=== PATIENT | female | born 1975 | race African-American/Black ===

== ENCOUNTER 2025-03-27 15:15 | Emergency (ER) | payer MEDICAID ==
[~2025-03-27] VITALS: Ht 167.6 cm; Wt 113.9 kg
[~2025-03-27 15:15] MED LIST: ALBU6.7H14 INH; GUAI120S17 PO; IBUP-1051 PO; NO HOME MEDS
[2025-03-27 15:18] VITALS: BP 154/92; PULSE 112; RESP 16; TEMP 98.7; O2SAT 98
[2025-03-27 15:38] LABS: LEUKOCYTE ESTERASE ,URINE NEGATIVE (Neg); NITRITES, URINE NEGATIVE (Neg); OCCULT BLOOD,URINE TRACE-INTACT (Neg)
[2025-03-27 15:39] LABS: URINE HCG NEGATIVE (NEG)
[2025-03-27 15:43] LABS: UA COLLECTION TYPE CLN CATCH MIDSTREAM
[2025-03-27 15:45] LABS: MUCUS STRANDS MODERATE /LPF (Neg); SQUAMOUS EPITHELIAL CELL,UR FEW /LPF (FEW)
[2025-03-27 16:10] LABS: MEAN PLATELET VOLUME 7.4 FL (7.4-10.4); RED CELL DISTRIBUTION WIDTH 14.5 % (11.5-14.5)
[2025-03-27 16:23] LABS: CREATININE 0.92 MG/DL (0.40-0.90); TOTAL CARBON DIOXIDE 27.4 MMOL/L (24-32); eCRCL 71 ML/MIN; eGFR 79 ML/MIN
== END 2025-03-27 19:45 | disposition left against medical advice (07) ==
LOC: ER 15:17
DX: R10.9 Unspecified abdominal pain (principal); R11.0 Nausea; Z88.5 Allergy status to narcotic agent; Z53.21 Procedure and treatment not carried out due to patient leaving prior to being seen by health care provider
CPT/HCPCS: 36415; 80053; 81001; 81025; 83690; 85025